=== PATIENT | female | born 1980 ===

== ENCOUNTER → 2018-02-19 | Outpatient (REF) | payer BC ==
[2018-02-19 13:40] LABS: CPK CREATINE PHOSPHOKINASE 76 U/L (26-192); FREE T4 1.04 NG/DL (0.76-1.46); MAGNESIUM LEVEL 2.1 MG/DL (1.8-2.4); RHEUMATOID FACTOR QUANT < 10.0 IU/ML (<15.0)
[2018-02-19 13:41] LABS: FOLATE 22.5 NG/ML (>5.4); VITAMIN B12 LEVEL 937 PG/ML (247-911)
[2018-02-19 13:46] LABS: HEMOGLOBIN A1c 5.5 %
[2018-02-27 14:10] LABS: ALDOLASE 4.5 U/L (3.3-10.3); ANTINUCLEAR ANTIBODIES DIRECT Negative (Negative); Lyme Disease IgG/IgM Antibodie <0.91 ISR (0.00-0.90); Lyme Disease IgM Ab Quantitati <0.80 index (0.00-0.79); Methylmalonic Acid 57 nmol/L (0-378); VITAMIN B1 LEVEL WHOLE BLOOD 94.4 nmol/L (66.5-200.0); VITAMIN E(ALPHA TOCOPHEROL) 13.1 mg/L (5.9-19.4); VITAMIN E(GAMMA TOCOPHEROL) 0.3 mg/L (0.7-4.9)
== END ==
LOC: M LABNEURO 09:11
PROVIDERS: ATTEND Psychiatry & Neurology Neurology
DX: E07.9 Disorder of thyroid, unspecified (principal); R20.0 Anesthesia of skin; E11.9 Type 2 diabetes mellitus without complications; M62.838 Other muscle spasm; Z11.8 Encounter for screening for other infectious and parasitic diseases